=== PATIENT | male | born 1985 | race Caucasian/White ===

== ENCOUNTER 2018-09-10 13:16 | Emergency (ER) | payer BC ==
[~2018-09-10] VITALS: Ht 182.9 cm; Wt 84.4 kg
[2018-09-10] MEDS ORDERED: KEPPRA1000 MG PO (13:37)
[2018-09-10] MEDS ORDERED: IBUPROFEN 600600 M1 PO (13:38)
[2018-09-10] MEDS ORDERED: DEPAKOTE 250MG250 M1 PO (13:38)
[2018-09-10] MEDS ORDERED: NEXIUM40 MG PO (13:38)
[2018-09-10] MEDS ORDERED: FISH OIL 1,001000 M2 PO (13:38)
[2018-09-10] MEDS ORDERED: LIPITOR10 MG PO (13:39)
[2018-09-10 13:50] LABS: ABSOLUTE BASOPHILS 0.1 thou/uL (0.0-0.2); ABSOLUTE EOSINOPHILS 0.1 thou/uL (0.0-0.7); ABSOLUTE LYMPHOCYTES 2.4 thou/uL (0.8-5.3); ABSOLUTE MONOCYTES 0.5 thou/uL (0.0-1.2); ABSOLUTE NEUTROPHILS 2.2 thou/uL (1.6-8.1); EOSINOPHILS 1.2 %; HEMATOCRIT 43.2 % (42.0-52.0); HEMOGLOBIN 14.9 gm/dL (14.0-18.0); LYMPHOCYTES 46.2 %; MCH 31.1 pg (26.0-34.0); MCHC 34.4 g/dL (28.0-37.0); MCV 90.6 fL (80.0-100.0); MONOCYTES 9.3 %; MPV 8.5 fl. (7.2-11.1); NUCLEATED RBCS 0 /100WBC; PLATELET COUNT* 225 thou/uL (150-400); POLYS 42.3 %; RBC 4.77 mil/uL (4.50-6.00); RDW-CV 13.4 % (10.5-14.5); WBC 5.2 thou/uL (4.0-11.0)
[2018-09-10 14:02] LABS: ANION GAP 11 mmol/L (7-16); BUN 10 mg/dL (7-18); CALCIUM 9.9 mg/dL (8.5-10.1); CHLORIDE 105 mmol/L (98-107); CO2 26 mmol/L (21-32); CREATININE 0.8 mg/dL (0.6-1.3); GLUCOSE 90 mg/dL (70-99); POTASSIUM 3.9 mmol/L (3.5-5.1); SODIUM 142 mmol/L (136-145)
[2018-09-10 14:12] LABS: APTT 29.4 Seconds (25.0-31.3); PROTIME 10.4 Seconds (9.20-11.50)
[2018-09-10 14:24] LABS: LIPASE 133 U/L (73-393); SGOT 19 U/L (15-37)
[2018-09-10 14:25] LABS: ALBUMIN 3.8 g/dL (3.4-5.0); ALKALINE PHOSPHATASE 52 U/L (46-116); MAGNESIUM 1.9 mg/dL (1.8-2.4); SGPT 26 U/L (30-65); TOTAL BILIRUBIN 0.4 mg/dL (<0.1-1.0); TOTAL PROTEIN 7.5 g/dL (6.4-8.2)
[2018-09-10 14:49] LABS: CK-MB MASS 0.7 ng/mL (<0.5-3.6); NT-PRO BRAIN NAT PEPTIDE 19 pg/mL (<300); TROPONIN-I LEVEL <0.06 ng/mL (<0.06)
[2018-09-10 14:54] VITALS: BP 131/83
--- NOTE | 2018-09-11 16:34 | EKG ---
[place] [address] ELECTROCARDIOGRAM REPORT Name: GERMAINE MARINELLI Room: [facility]#: [id number] Admission: 09/10/18 Attend Phys: Discharge: 09/10/18 Date of : 89 Report #: [id number] THIS REPORT FOR: //name// [facility] ED Test Date: 2018-09-10 Test Time: 13:16:07 Pat Name: GERMAINE MARINELLI Department: Room: Gender: M Lunch Cook: : 1985 Requested By: Blu Chavez Order Number: [id number] MD: Sukhwinder Palacios Measurements Intervals [place] Rate: 84 P: 55 CO: 108 QRS: 77 QRSD: 93 T: 51 QT: 343 QTc: 406 Interpretive Statements Sinus rhythm Short CO interval ST elev, probable normal early repol pattern No previous ECG available for comparison Electronically Signed On 09-11-2018 16:34:39 QUALITY CONTROL CHECKER by Sukhwinder Palacios [email or web address] <ELECTRONICALLY SIGNED> By: Sukhwinder Palacios MD, [facility] 09/11/18 1634 1316 1316 Sukhwinder Palacios MD, FACC /EPI
== END 2018-09-10 14:55 | disposition home or self-care (01) ==
LOC: M.ERS 13:16
PROVIDERS: Family Medicine
DX: R07.89 Other chest pain (principal); K21.9 Gastro-esophageal reflux disease without esophagitis; E78.00 Pure hypercholesterolemia, unspecified